=== PATIENT | female | born 1965 | race Caucasian/White ===

== ENCOUNTER 2017-04-16 17:08 | Emergency (ER) | payer MEDICAID ==
[~2017-04-16] VITALS: Ht 152.4 cm; Wt 74.8 kg
[~2017-04-16 17:08] MED LIST: ALBU2.5V13
--- NOTE | 2017-04-16 17:10 | NUR ---
PATIENT TO ED DT SOB X 1 WEEK. PATIENT IS AWAKE AND ALERT, SKIN IS WARM TO TOUCH AND NON DIAPHORETIC. PATIENT IS AFEBRILE. SATING WELL ON ROOM AIR. VSS
[2017-04-16] MEDS ORDERED: predniSONE 20 MG TABLET ONE (17:26)
[2017-04-16] MEDS ORDERED: predniSONE 20 MG TABLET PO ONE (17:30)
[2017-04-16] MEDS ORDERED: IPRATROPIUM NEB FS 0.5 MG/2.5 ML AMPUL.NEB NEB ONE (17:30)
[2017-04-16] MEDS ORDERED: ALBUTEROL FS 2.5 MG/3 ML VIAL.NEB NEB ONE (17:30)
--- NOTE | 2017-04-16 17:35 | NUR ---
CALLED RT FOR BREATHING TREATMENT
[2017-04-16] MEDS ORDERED: ALBUTEROL FS 2.5 MG/3 ML VIAL.NEB ONE (17:42)
[2017-04-16] MEDS ORDERED: IPRATROPIUM NEB FS 0.5 MG/2.5 ML AMPUL.NEB ONE (17:42)
[2017-04-16 17:53] VITALS: BP 140/80
--- NOTE | 2017-04-16 17:59 | NUR ---
Patient discharged to home in stable condition. Written and verbal after care instructions given. Patient verbalizes understanding of instruction.
== END 2017-04-16 18:00 | disposition home or self-care (01) ==
LOC: ER 17:09
DX: J45.901 Unspecified asthma with (acute) exacerbation (principal); J11.1 Influenza due to unidentified influenza virus with other respiratory manifestations; E78.00 Pure hypercholesterolemia, unspecified
CPT/HCPCS: A4606

== ENCOUNTER 2017-05-19 18:19 | Emergency (ER) | payer MEDICAID ==
[~2017-05-19] VITALS: Ht 152.4 cm; Wt 74.8 kg
[2017-05-19 18:46] VITALS: BP 135/72
[2017-05-19] MEDS ORDERED: ALBUTEROL FS 2.5 MG/3 ML VIAL.NEB NEB ONE (20:00)
[2017-05-19] MEDS ORDERED: DEXAMETHASONE SOD PHOSPHATE 4 MG/ML VIAL IM ONE (20:00)
[2017-05-19] MEDS ORDERED: DEXAMETHASONE SOD PHOSPHATE 10 MG/ML VIAL ONE (20:21)
[2017-05-19] MEDS ORDERED: ALBUTEROL FS 2.5 MG/3 ML VIAL.NEB ONE (20:46)
== END 2017-05-19 22:17 | disposition home or self-care (01) ==
LOC: ER 18:24
DX: J45.909 Unspecified asthma, uncomplicated (principal); J40 Bronchitis, not specified as acute or chronic; E78.00 Pure hypercholesterolemia, unspecified; Z98.890 Other specified postprocedural states
CPT/HCPCS: 71045; 94640; 96372; 99283; A4606; J1100; Z7610

== ENCOUNTER 2021-11-25 22:23 | Emergency (ER) | payer MEDICAID ==
[~2021-11-25] VITALS: Ht 134.6 cm; Wt 80.7 kg
--- NOTE | 2021-11-25 22:42 | NUR ---
TO ER BED 3. BIBDAUGHTER C/O L CHEST & L BACK PAIN X 2 WEEKS. WORSE WHEN BREATHING, ALSO C/O HEADACHE, WHEEZING AND COUGH. PT IS ALERT AND ORIENTED. RR EVEN AND NON LABORED. CONNECTED TO MONITOR. AWAITING MD LANE
[2021-11-25] MEDS ORDERED: methylPREDNISolone SOD SUCC 125 MG/2ML VIAL ONE (22:54)
[2021-11-25] MEDS ORDERED: KETOROLAC TROMETHAMINE INJ 30 MG/ML VIAL ONE (22:54)
[2021-11-25] MEDS ORDERED: methylPREDNISolone SOD SUCC 125 MG/2ML VIAL IV ONE (23:00)
[2021-11-25] MEDS ORDERED: ALBUTEROL FS 2.5 MG/0.5 ML VIAL.NEB NEB ONE (23:00)
[2021-11-25] MEDS ORDERED: KETOROLAC TROMETHAMINE INJ 30 MG/ML VIAL IV ONE (23:00)
--- NOTE | 2021-11-25 23:08 | NUR ---
BLOOD COLLECTED AND SENT TO LAB
--- NOTE | 2021-11-25 23:08 | NUR ---
IV LINE ESTABLISHED, [id number]
[2021-11-25] MEDS ORDERED: ALBUTEROL FS 2.5 MG/0.5 ML VIAL.NEB ONE (23:15)
[2021-11-25 23:27] LABS: BASOPHILS # (AUTO) 0.1 K/uL (0.0-0.2); EOSINOPHILS % (AUTO) 4.4 % (0.0-6.0); HEMATOCRIT 42 % (33-45); HEMOGLOBIN 14.4 g/dL (11.5-14.8); LYMPHOCYTES % (AUTO) 29.4 % (20.0-44.0); MEAN CORPUSCULAR HGB CONC 34 g/dl (31.0-36.0); MEAN CORPUSCULAR VOLUME 88 fL (82-100); MONOCYTES # (AUTO) 0.8 K/uL (0.1-1.30); MONOCYTES % (AUTO) 7.5 % (2.0-12.0); NEUTROPHILS # (AUTO) 5.9 K/uL (1.8-8.9); NEUTROPHILS % (AUTO) 57.7 % (43.0-81.0); PLATELET COUNT (AUTO) 244 K/uL (150-450); RED BLOOD CELL COUNT(AUTO) 4.77 MIL/uL (4.0-5.2); WHITE BLOOD COUNT (AUTO) 10.2 K/uL (4.3-11.0)
[2021-11-25 23:41] LABS: CALCIUM, SERUM 9.4 mg/dL (8.5-10.1); CARBON DIOXIDE 28 mmol/L (21-32); CHLORIDE 105 mmol/L (98-107); CREATININE 0.7 mg/dL (0.6-1.3); GLUCOSE 219 mg/dL (74-106); POTASSIUM 3.3 mmol/L (3.5-5.1); SODIUM SERUM 140 mmol/L (136-145); UREA NITROGEN, BLOOD 20 mg/dL (7-18)
[2021-11-25 23:50] LABS: ALANINE AMINOTRANSFERASE 110 U/L (12-78); ALBUMIN 3.5 g/dL (3.4-5.0); ALKALINE PHOSPHATASE 121 U/L (46-116); ASPARTATE AMINOTRANSFERASE 46 U/L (15-37); BILIRUBIN,DIRECT 0.1 mg/dL (0.0-0.2); BILIRUBIN,TOTAL 0.3 mg/dL (0.2-1.0); TOTAL PROTEIN, SERUM 7.4 g/dL (6.4-8.2)
[2021-11-26] MEDS ORDERED: hydrALAZINE HCL IV 20 MG VIAL ONE (00:08)
[2021-11-26] MEDS ORDERED: hydrALAZINE HCL IV 20 MG VIAL IV ONE (00:30)
[2021-11-26] MEDS ORDERED: ALBU2.5V38 NEB (02:00)
--- NOTE | 2021-11-26 02:16 | NUR ---
Patient discharged to home in stable condition. Written and verbal after care instructions given. Patient verbalizes understanding of instruction.
--- NOTE | 2021-11-26 02:16 | NUR ---
IV removed. Catheter intact and site benign. Pressure and 4x4 applied to site. No bleeding noted.
[2021-11-26 02:17] VITALS: BP 156/82
== END 2021-11-26 02:17 | disposition home or self-care (01) ==
LOC: ER 22:38
DX: I16.0 Hypertensive urgency (principal); R07.89 Other chest pain; J98.01 Acute bronchospasm; I10 Essential (primary) hypertension; E11.9 Type 2 diabetes mellitus without complications; E78.00 Pure hypercholesterolemia, unspecified; Z79.51 Long term (current) use of inhaled steroids
CPT/HCPCS: 99285; 96374; 71045; 96375 ×2; 93005; 85025; 80048; 80076; 36415 ×2; 84484 ×2; 85730; 83880; 94640; J2930; J1885; J0360

== ENCOUNTER 2022-02-01 10:44 | Emergency (ER) | payer MEDICAID ==
[~2022-02-01] VITALS: Ht 142.2 cm; Wt 65.8 kg
[~2022-02-01 10:44] MED LIST changes: +ALBU2.5V38 NEB
--- NOTE | 2022-02-01 11:00 | NUR ---
BIBS W/ C/O LOWER ABDOMINAL PAIN/LOWER BACK PAIN, DYSURIA X2 DAYS. TO ER BED 9.
--- NOTE | 2022-02-01 11:05 | NUR ---
URINE SAMPLE COLLECTED AND SENT TO LAB
[2022-02-01 12:13] LABS: BILIRUBIN,URINE NEGATIVE (NEGATIVE); COLOR,URINE YELLOW (YELLOW); LEUKOCYTE ESTERASE ,URINE 1+ (NEGATIVE); NITRITE, URINE NEGATIVE (NEGATIVE); PROTEIN,URINE NEGATIVE (NEGATIVE); UGLUCOSE NEGATIVE (NEGATIVE); UROBILINOGEN,URINE 0.2 EU/dL (0.2)
[2022-02-01 12:15] LABS: WBC,URINE 0-2 /HPF (0-3)
[2022-02-01 12:16] LABS: BACTERIA,URINE None seen /HPF (None Seen); SQUAMOUS EPITHELIAL CELL,UR Few /HPF (None Seen)
[2022-02-01 12:30] LABS: BASOPHILS # (AUTO) 0.1 K/uL (0.0-0.2); BASOPHILS % (AUTO) 0.8 % (0.0-2.0); EOSINOPHILS % (AUTO) 2.4 % (0.0-6.0); HEMATOCRIT 44 % (33-45); LYMPHOCYTES # (AUTO) 2.8 K/uL (0.8-4.8); LYMPHOCYTES % (AUTO) 34.3 % (20.0-44.0); MEAN CORPUSCULAR HGB CONC 34 g/dl (31.0-36.0); MEAN CORPUSCULAR VOLUME 88 fL (82-100); MONOCYTES # (AUTO) 0.5 K/uL (0.1-1.30); MONOCYTES % (AUTO) 6.4 % (2.0-12.0); NEUTROPHILS # (AUTO) 4.5 K/uL (1.8-8.9); NEUTROPHILS % (AUTO) 56.1 % (43.0-81.0); PLATELET COUNT (AUTO) 249 K/uL (150-450); RED BLOOD CELL COUNT(AUTO) 5.06 MIL/uL (4.0-5.2); WHITE BLOOD COUNT (AUTO) 8.1 K/uL (4.3-11.0)
[2022-02-01 12:44] LABS: CALCIUM, SERUM 9.2 mg/dL (8.5-10.1); CREATININE 0.6 mg/dL (0.6-1.3); POTASSIUM 3.6 mmol/L (3.5-5.1)
[2022-02-01] MEDS ORDERED: NAPR-1192 PO (14:21)
[2022-02-01] MEDS ORDERED: TAMS-12 PO (14:21)
[2022-02-01 14:46] VITALS: BP 144/88
== END 2022-02-01 14:46 | disposition home or self-care (01) ==
LOC: ER 11:13
DX: N20.0 Calculus of kidney (principal); R10.9 Unspecified abdominal pain; I10 Essential (primary) hypertension; J45.909 Unspecified asthma, uncomplicated; E11.9 Type 2 diabetes mellitus without complications; E78.00 Pure hypercholesterolemia, unspecified; Z79.899 Other long term (current) drug therapy
CPT/HCPCS: 36415; 80048-TC; 81001; 85025-TC; 87086-TC

== ENCOUNTER 2022-02-28 10:05 | Emergency (ER) | payer MEDICAID ==
[~2022-02-28] VITALS: Ht 147.3 cm; Wt 77.1 kg
[~2022-02-28 10:05] MED LIST changes: +NAPR-1192 PO; +TAMS-12 PO
--- NOTE | 2022-02-28 11:10 | NUR ---
BIB DAUGHTER, SOB AT NIGHT TIME, BACK OF NECK CELLULITIS AND L EAR PAIN. AMBULATORY, PLACED ON BED, BREATHING EVEN AND UNLABORED SATURATING AT 97%RA.
--- NOTE | 2022-02-28 11:45 | NUR ---
AT BEDSIDE FOR EVAL.
[2022-02-28] MEDS ORDERED: PRED50TA PO (11:51)
--- NOTE | 2022-02-28 12:00 | NUR ---
Patient discharged to home in stable condition. Written and verbal after care instructions given. Patient and Daughter verbalizes understanding of instruction.
[2022-02-28 12:02] VITALS: BP 165/98
== END 2022-02-28 12:00 | disposition home or self-care (01) ==
LOC: ER 10:09
DX: L72.9 Follicular cyst of the skin and subcutaneous tissue, unspecified (principal); J45.909 Unspecified asthma, uncomplicated; I10 Essential (primary) hypertension; E11.9 Type 2 diabetes mellitus without complications; E78.00 Pure hypercholesterolemia, unspecified; Z79.899 Other long term (current) drug therapy

== ENCOUNTER 2022-12-26 16:57 | Emergency (ER) | payer MEDICAID ==
[~2022-12-26] VITALS: Ht 142.2 cm; Wt 70.8 kg
[~2022-12-26 16:57] MED LIST changes: +PRED50TA PO
[2022-12-26] MEDS ORDERED: IV NS 0.9% 1,000 ML BAG IV ONE (17:00)
[2022-12-26 17:25] LABS: BASOPHILS % (AUTO) 0.6 % (0.0-2.0); EOSINOPHILS # (AUTO) 0.3 K/uL (0.0-0.7); EOSINOPHILS % (AUTO) 3.1 % (0.0-6.0); HEMATOCRIT 45 % (33-45); HEMOGLOBIN 15.4 g/dL (11.5-14.8); MEAN CORPUSCULAR HEMOGLOBIN 30 PG (26.0-33.0); MEAN CORPUSCULAR HGB CONC 34 g/dl (31.0-36.0); MEAN CORPUSCULAR VOLUME 88 fL (82-100); MONOCYTES # (AUTO) 0.7 K/uL (0.1-1.30); MONOCYTES % (AUTO) 7.8 % (2.0-12.0); NEUTROPHILS # (AUTO) 4.4 K/uL (1.8-8.9); NEUTROPHILS % (AUTO) 52.5 % (43.0-81.0); PLATELET COUNT (AUTO) 249 K/uL (150-450); RED BLOOD CELL COUNT(AUTO) 5.11 MIL/uL (4.0-5.2); RED CELL DISTRIBUTION WIDTH 13.2 % (11.5-15.0); WHITE BLOOD COUNT (AUTO) 8.3 K/uL (4.3-11.0)
[2022-12-26 17:46] LABS: CALCIUM, SERUM 9.9 mg/dL (8.5-10.1); CARBON DIOXIDE 27 mmol/L (21-32); CHLORIDE 103 mmol/L (98-107); CREATININE 0.5 mg/dL (0.6-1.3); GLUCOSE 185 mg/dL (74-106); POTASSIUM 3.8 mmol/L (3.5-5.1); SODIUM SERUM 139 mmol/L (136-145); UREA NITROGEN, BLOOD 13 mg/dL (7-18)
[2022-12-26 17:56] LABS: ALANINE AMINOTRANSFERASE 123 U/L (12-78); ALBUMIN 3.6 g/dL (3.4-5.0); ALKALINE PHOSPHATASE 138 U/L (46-116); ASPARTATE AMINOTRANSFERASE 52 U/L (15-37); BILIRUBIN,DIRECT 0.1 mg/dL (0.0-0.2); BILIRUBIN,TOTAL 0.3 mg/dL (0.2-1.0); LIPASE 33 U/L (16-77); TOTAL PROTEIN, SERUM 7.5 g/dL (6.4-8.2)
[2022-12-26 18:04] LABS: NT-PRO BNP 30 pg/mL (0-125)
[2022-12-26 18:30] LABS: APPEARANCE,URINE SLIGHTLY CLOUDY (CLEAR); BILIRUBIN,URINE NEGATIVE (NEGATIVE); BLOOD, URINE NEGATIVE Ery/uL (NEGATIVE); COLOR,URINE YELLOW (YELLOW); KETONES,URINE NEGATIVE (NEGATIVE); LEUKOCYTE ESTERASE ,URINE 2+ (NEGATIVE); NITRITE, URINE NEGATIVE (NEGATIVE); PROTEIN,URINE NEGATIVE (NEGATIVE); UGLUCOSE NEGATIVE (NEGATIVE); UROBILINOGEN,URINE 0.2 EU/dL (0.2)
[2022-12-26 18:37] LABS: ACETONE, SERUM NEGATIVE (NEGATIVE)
[2022-12-26 19:11] VITALS: BP 133/72; TEMP 97.8; O2SAT 98
[2022-12-26 19:23] LABS: ADD URINE CULTURE YES; BACTERIA,URINE 1+ /HPF (None Seen); RBC,URINE NONE SEEN /HPF (0-2); SQUAMOUS EPITHELIAL CELL,UR 21-50 /HPF (None Seen)
[2022-12-27 09:23] LABS: SITE, VBG Other; VBG BASE EXCESS 2.2 mmol/L (-3-3); VBG COHb 0.8 %; VBG MetHb 0.3 %; VBG O2Hb 74.4 %; VBG OXYGEN SATURATION 75.2 %; VBG PCO2 44.2 mmHg (40-52); VBG PO2 37.9 mmHg (30-50); VBG TOTAL HEMOGLOBIN 16.8 G/dL (12.0-16.0); VENT MODE, VBG RA
== END 2022-12-26 19:12 | disposition home or self-care (01) ==
LOC: ER 16:59
DX: E11.9 Type 2 diabetes mellitus without complications (principal); I10 Essential (primary) hypertension; J45.909 Unspecified asthma, uncomplicated; E78.00 Pure hypercholesterolemia, unspecified; Z98.890 Other specified postprocedural states; Z79.899 Other long term (current) drug therapy
CPT/HCPCS: 99285; 96360; 71045; 93005; 82803 ×2; 85025; 80048; 87086; 82010; 83690; 80076; 81001; 36415; 84484; 83880; 82962; 94799; J7030

== ENCOUNTER 2023-01-19 08:20 | Emergency (ER) | payer MEDICAID ==
[~2023-01-19] VITALS: Ht 137.2 cm; Wt 72.6 kg
[2023-01-19] MEDS ORDERED: dexaMETHasone SOD PHOSPHATE 10 MG/ML VIAL ONE (09:06)
[2023-01-19] MEDS ORDERED: hydrALAZINE HCL IV 20 MG VIAL ONE (09:06)
[2023-01-19] MEDS ORDERED: diphenhydrAMINE HCL 50 MG/ML VIAL ONE (09:06)
[2023-01-19] MEDS ORDERED: METOCLOPRAMIDE HCL 10 MG/2 ML VIAL ONE (09:06)
[2023-01-19] MEDS ORDERED: ACETAMINOPHEN ES 500 MG TABLET ONE (09:06)
[2023-01-19] MEDS: hydrALAZINE HCL IV 20 MG VIAL IV ONE (09:12)
[2023-01-19] MEDS: ACETAMINOPHEN ES 500 MG TABLET PO ONE (09:12)
[2023-01-19] MEDS: diphenhydrAMINE HCL 50 MG/ML VIAL IV ONE (09:21)
[2023-01-19] MEDS: dexaMETHasone SOD PHOSPHATE 10 MG/ML VIAL IV ONE (09:21)
[2023-01-19] MEDS: METOCLOPRAMIDE HCL 10 MG/2 ML VIAL IV ONE (09:21)
[2023-01-19 09:23] LABS: ALANINE AMINOTRANSFERASE 77 U/L (12-78); ALKALINE PHOSPHATASE 125 U/L (46-116); ASPARTATE AMINOTRANSFERASE 24 U/L (15-37); BILIRUBIN,TOTAL 0.3 mg/dL (0.2-1.0); CALCIUM, SERUM 9.4 mg/dL (8.5-10.1); CARBON DIOXIDE 28 mmol/L (21-32); CHLORIDE 105 mmol/L (98-107); CREATININE 0.5 mg/dL (0.6-1.3); GLUCOSE 117 mg/dL (74-106); POTASSIUM 3.5 mmol/L (3.5-5.1); SODIUM SERUM 141 mmol/L (136-145); TOTAL PROTEIN, SERUM 8.2 g/dL (6.4-8.2); UREA NITROGEN, BLOOD 16 mg/dL (7-18)
[2023-01-19 09:44] LABS: BASOPHILS % (AUTO) 0.5 % (0.0-2.0); EOSINOPHILS # (AUTO) 0.3 K/uL (0.0-0.7); EOSINOPHILS % (AUTO) 3.8 % (0.0-6.0); HEMATOCRIT 47 % (33-45); HEMOGLOBIN 15.9 g/dL (11.5-14.8); LYMPHOCYTES # (AUTO) 2.7 K/uL (0.8-4.8); LYMPHOCYTES % (AUTO) 35.3 % (20.0-44.0); MEAN CORPUSCULAR HEMOGLOBIN 30 PG (26.0-33.0); MEAN CORPUSCULAR HGB CONC 34 g/dl (31.0-36.0); MEAN CORPUSCULAR VOLUME 88 fL (82-100); MONOCYTES # (AUTO) 0.5 K/uL (0.1-1.30); MONOCYTES % (AUTO) 6.7 % (2.0-12.0); NEUTROPHILS # (AUTO) 4.2 K/uL (1.8-8.9); NEUTROPHILS % (AUTO) 53.7 % (43.0-81.0); PLATELET COUNT (AUTO) 269 K/uL (150-450); RED BLOOD CELL COUNT(AUTO) 5.27 MIL/uL (4.0-5.2); RED CELL DISTRIBUTION WIDTH 13.4 % (11.5-15.0); WHITE BLOOD COUNT (AUTO) 7.7 K/uL (4.3-11.0)
[2023-01-19] MEDS ORDERED: IBUP-1955 PO (10:31)
[2023-01-19 10:50] LABS: APPEARANCE,URINE CLEAR (CLEAR); BILIRUBIN,URINE NEGATIVE (NEGATIVE); BLOOD, URINE NEGATIVE Ery/uL (NEGATIVE); COLOR,URINE YELLOW (YELLOW); KETONES,URINE NEGATIVE (NEGATIVE); LEUKOCYTE ESTERASE ,URINE 2+ (NEGATIVE); NITRITE, URINE NEGATIVE (NEGATIVE); PROTEIN,URINE NEGATIVE (NEGATIVE); UGLUCOSE 3+ mg/dL (NEGATIVE); UROBILINOGEN,URINE 0.2 EU/dL (0.2)
[2023-01-19 12:01] LABS: ADD URINE CULTURE YES; BACTERIA,URINE 1+ /HPF (None Seen); RBC,URINE NONE SEEN /HPF (0-2)
[2023-01-19] MEDS ORDERED: CEPH500C2 PO (12:13)
[2023-01-19 12:26] VITALS: BP 150/72; TEMP 98; O2SAT 100
== END 2023-01-19 12:26 | disposition home or self-care (01) ==
LOC: ER 08:20
DX: I10 Essential (primary) hypertension (principal); N39.0 Urinary tract infection, site not specified; R51.9 Headache, unspecified; R07.89 Other chest pain; E78.5 Hyperlipidemia, unspecified; J45.909 Unspecified asthma, uncomplicated; E11.9 Type 2 diabetes mellitus without complications; Z98.890 Other specified postprocedural states; Z79.899 Other long term (current) drug therapy
CPT/HCPCS: 99285; 96374; 96375; 70450; 71045; 93005; 85025; 80048; 87086; 80076; 81001; 36415; 84484 ×2; 82962; J1100; J1200; J0360; J2765; J7030

== ENCOUNTER 2023-04-22 14:27 | Emergency (ER) | payer MEDICAID ==
[~2023-04-22] VITALS: Ht 142.2 cm; Wt 68.5 kg
[~2023-04-22 14:27] MED LIST changes: +CEPH500C2 PO; +IBUP-1955 PO
[2023-04-22] MEDS ORDERED: KETOROLAC TROMETHAMINE INJ 30 MG/ML VIAL ONE (15:42)
[2023-04-22] MEDS: KETOROLAC TROMETHAMINE INJ 30 MG/ML VIAL IV ONE (15:50)
[2023-04-22 16:28] LABS: BASOPHILS # (AUTO) 0.1 K/uL (0.0-0.2); BASOPHILS % (AUTO) 0.4 % (0.0-2.0); EOSINOPHILS # (AUTO) 0.4 K/uL (0.0-0.7); EOSINOPHILS % (AUTO) 2.7 % (0.0-6.0); HEMATOCRIT 46 % (33-45); HEMOGLOBIN 15.7 g/dL (11.5-14.8); LYMPHOCYTES % (AUTO) 14.4 % (20.0-44.0); MEAN CORPUSCULAR HEMOGLOBIN 30 PG (26.0-33.0); MEAN CORPUSCULAR HGB CONC 34 g/dl (31.0-36.0); MEAN CORPUSCULAR VOLUME 88 fL (82-100); MONOCYTES # (AUTO) 1.1 K/uL (0.1-1.30); MONOCYTES % (AUTO) 7.7 % (2.0-12.0); NEUTROPHILS # (AUTO) 10.3 K/uL (1.8-8.9); NEUTROPHILS % (AUTO) 74.8 % (43.0-81.0); PLATELET COUNT (AUTO) 256 K/uL (150-450); RED BLOOD CELL COUNT(AUTO) 5.23 MIL/uL (4.0-5.2); RED CELL DISTRIBUTION WIDTH 13.3 % (11.5-15.0); WHITE BLOOD COUNT (AUTO) 13.8 K/uL (4.3-11.0)
[2023-04-22 16:42] LABS: ALBUMIN 3.9 g/dL (3.4-5.0); BILIRUBIN,TOTAL 0.3 mg/dL (0.2-1.0); CALCIUM, SERUM 9.6 mg/dL (8.5-10.1); CREATININE 0.7 mg/dL (0.6-1.3); POTASSIUM 3.5 mmol/L (3.5-5.1); TOTAL PROTEIN, SERUM 7.9 g/dL (6.4-8.2)
[2023-04-22 16:44] LABS: LACTIC ACID 1.6 mmol/L (0.4-2.0)
[2023-04-22 16:54] LABS: APPEARANCE,URINE SLIGHTLY CLOUDY (CLEAR); BILIRUBIN,URINE NEGATIVE (NEGATIVE); BLOOD, URINE NEGATIVE Ery/uL (NEGATIVE); COLOR,URINE YELLOW (YELLOW); KETONES,URINE NEGATIVE (NEGATIVE); LEUKOCYTE ESTERASE ,URINE 1+ (NEGATIVE); NITRITE, URINE NEGATIVE (NEGATIVE); PROTEIN,URINE NEGATIVE (NEGATIVE); UGLUCOSE 3+ mg/dL (NEGATIVE); UROBILINOGEN,URINE 0.2 EU/dL (0.2)
[2023-04-22 17:08] LABS: ADD URINE CULTURE YES; BACTERIA,URINE 1+ /HPF (None Seen); RBC,URINE 0-2 /HPF (0-2)
[2023-04-22 17:53] VITALS: BP 155/82; TEMP 98.2; O2SAT 100
== END 2023-04-22 17:54 | disposition home or self-care (01) ==
LOC: ER 14:36
DX: R51.9 Headache, unspecified (principal)
CPT/HCPCS: 99285; 70450; 96374; 70486; 85025; 87086; 83605; 81001; 36415; 80053; J1885

== ENCOUNTER 2024-10-03 13:55 | Emergency (ER) | payer MEDICAID ==
[~2024-10-03] VITALS: Ht 134.6 cm; Wt 77.1 kg
[2024-10-03] MEDS ORDERED: PANTOPRAZOLE 40 MG VIAL ONE (14:47)
[2024-10-03] MEDS ORDERED: ONDANSETRON HCL/PF 4 MG/2 ML VIAL ONE (14:47)
[2024-10-03] MEDS ORDERED: MORPHINE SULFATE INJ 4 MG/ML DISP.SYRIN ONE (14:48)
[2024-10-03] MEDS: IV NS 0.9% 1,000 ML BAG IV ONE (14:49)
[2024-10-03] MEDS: PANTOPRAZOLE 40 MG VIAL IV ONE (14:50)
[2024-10-03 14:56] LABS: PLATELET COUNT (AUTO) 244 K/uL (150-450); RED BLOOD CELL COUNT(AUTO) 5.56 MIL/uL (4.0-5.2); RED CELL DISTRIBUTION WIDTH 13.5 % (11.5-15.0); WHITE BLOOD COUNT (AUTO) 8.0 K/uL (4.3-11.0)
[2024-10-03 14:58] LABS: APPEARANCE,URINE CLEAR (CLEAR); BLOOD, URINE TRACE-INTA Ery/uL (NEGATIVE); LEUKOCYTE ESTERASE ,URINE NEGATIVE (NEGATIVE); NITRITE, URINE NEGATIVE (NEGATIVE); UGLUCOSE 3+ mg/dL (NEGATIVE)
[2024-10-03] MEDS: ONDANSETRON HCL/PF 4 MG/2 ML VIAL IVP ONE (15:00)
[2024-10-03] MEDS: MORPHINE SULFATE INJ 2 MG/ML DISP.SYRIN IV ONE (15:01)
[2024-10-03 15:10] LABS: ADD URINE CULTURE NO; SQUAMOUS EPITHELIAL CELL,UR 0-2 /HPF (None Seen)
[2024-10-03 15:10] LABS: ASPARTATE AMINOTRANSFERASE 33.0 U/L (15-37); CALCIUM, SERUM 9.4 mg/dL (8.5-10.1); CREATININE 0.6 mg/dL (0.6-1.3); SODIUM SERUM 142.0 mmol/L (136-145); TOTAL PROTEIN, SERUM 7.7 g/dL (6.4-8.2); UREA NITROGEN, BLOOD 16.0 mg/dL (7-18)
[2024-10-03] MEDS ORDERED: IBUP-1955 PO (16:56)
[2024-10-03] MEDS ORDERED: AMOX-430 PO (16:56)
[2024-10-03] MEDS ORDERED: ONDA4TAB5 PO (16:56)
[2024-10-03] MEDS: PIPERACILLIN /TAZOBACTAM 3.375 G in IV D5W 50 ML IV ONE (17:00)
[2024-10-03 18:17] VITALS: BP 147/88; TEMP 99.4; O2SAT 96
== END 2024-10-03 18:21 | disposition home or self-care (01) ==
LOC: ER 14:08
DX: K50.00 Crohn's disease of small intestine without complications (principal); I10 Essential (primary) hypertension; E11.9 Type 2 diabetes mellitus without complications; E66.01 Morbid (severe) obesity due to excess calories; E78.00 Pure hypercholesterolemia, unspecified; E87.6 Hypokalemia; J45.909 Unspecified asthma, uncomplicated; Z79.52 Long term (current) use of systemic steroids; Z79.899 Other long term (current) drug therapy
CPT/HCPCS: 99285; 74176; 96365; 96375; 71045; 96361; 93005; 85025; 80048; 83690; 80076; 81001; 36415; J2270; J2405; J2543; J7060; J7030 ×2; J2470

== ENCOUNTER 2024-10-22 15:33 | Emergency (ER) | payer MEDICAID ==
[~2024-10-22] VITALS: Ht 134.6 cm; Wt 76.2 kg
[~2024-10-22 15:33] MED LIST changes: +AMOX-430 PO; +ONDA4TAB5 PO
[2024-10-22] MEDS ORDERED: ACETAMINOPHEN 325 MG TABLET ONE (15:53)
[2024-10-22] MEDS: ACETAMINOPHEN 325 MG TABLET PO ONE (15:59)
[2024-10-22 16:12] LABS: PLATELET COUNT (AUTO) 255 K/uL (150-450); RED BLOOD CELL COUNT(AUTO) 5.15 MIL/uL (4.0-5.2); RED CELL DISTRIBUTION WIDTH 14.0 % (11.5-15.0); WHITE BLOOD COUNT (AUTO) 8.7 K/uL (4.3-11.0)
[2024-10-22 16:18] LABS: CALCIUM, SERUM 9.0 mg/dL (8.5-10.1); CREATININE 0.8 mg/dL (0.6-1.3); SODIUM SERUM 141.0 mmol/L (136-145); UREA NITROGEN, BLOOD 19.0 mg/dL (7-18)
[2024-10-22 16:23] LABS: INR 1.08 (0.91-1.10)
[2024-10-22 16:26] LABS: ASPARTATE AMINOTRANSFERASE 43.0 U/L (15-37); TOTAL PROTEIN, SERUM 7.7 g/dL (6.4-8.2)
[2024-10-22] MEDS ORDERED: METH-649 PO (18:09)
[2024-10-22] MEDS ORDERED: LIDO30AD10 TP (18:09)
[2024-10-22 18:17] VITALS: BP 164/95; TEMP 98.4; O2SAT 99
== END 2024-10-22 18:18 | disposition home or self-care (01) ==
LOC: ER 15:36
DX: M79.604 Pain in right leg (principal); M79.651 Pain in right thigh; E11.9 Type 2 diabetes mellitus without complications; E78.00 Pure hypercholesterolemia, unspecified; I10 Essential (primary) hypertension; J45.909 Unspecified asthma, uncomplicated; Z79.52 Long term (current) use of systemic steroids
CPT/HCPCS: 36415; 80048-TC; 80076-TC; 82550-TC; 85025-TC; 85730-TC; 93971-TC

== ENCOUNTER 2024-11-17 10:35 | Emergency (ER) | payer MEDICAID ==
[~2024-11-17] VITALS: Ht 134.6 cm; Wt 73.5 kg
[~2024-11-17 10:35] MED LIST changes: +LIDO30AD10 TP; +METH-649 PO
[2024-11-17 11:00] VITALS: BP 142/85; TEMP 98.3
[2024-11-17] MEDS ORDERED: KETOROLAC TROMETHAMINE 15 MG/ML VIAL ONE (11:34)
[2024-11-17] MEDS: KETOROLAC TROMETHAMINE 15 MG/ML VIAL IM ONE (11:37)
[2024-11-17] MEDS ORDERED: CYCL10TA9 PO (12:36)
[2024-11-17] MEDS ORDERED: MELO15TA13 PO (12:36)
[2024-11-17 12:41] VITALS: O2SAT 98
== END 2024-11-17 12:43 | disposition home or self-care (01) ==
LOC: ER 10:49
DX: M54.50 Low back pain, unspecified (principal); M25.561 Pain in right knee; E78.00 Pure hypercholesterolemia, unspecified; J45.909 Unspecified asthma, uncomplicated
CPT/HCPCS: 99283; 96372; 73564; J1885